=== PATIENT | male | born 1960 | race Caucasian/White ===

== ENCOUNTER → 2022-06-23 15:23 | Outpatient (BNVA) | payer MEDICAID, SELFPAY | PROVIDERS: Visit Provider Surgery | DX: Z86.010 Personal history of colon polyps (principal) | CPT/HCPCS: 99203 ==

== ENCOUNTER 2022-09-30 07:04 | Day surgery (SDC) | payer MEDICAID, SELFPAY ==
[2022-09-28 09:38] VITALS: BMI 36.9
[2022-09-30 07:51] VITALS: BP 137/80; PULSE 70; RESP 17; TEMP 36.4; O2SAT 93
[2022-09-30] MEDS: sodium chloride 0.9% 1,000 ML 30 ML IV (07:56)
--- NOTE | 2022-09-30 08:30 | ANES.PREANE2 ---
Pre-Anesthetic Assessment Height/Weight: Height 1.8 m Weight 120.202 kg Temp Pulse Resp BP Pulse Ox O2 Del Method 97.6 F 70 17 137/80 93 09/30/22 07:51 09/30/22 07:51 09/30/22 07:51 09/30/22 07:51 09/30/22 07:51 09/30/22 07:51 Preop Diagnosis: History of colon polyps Operation Date: 09/30/22 09:15 Proposed Procedures p Colonoscopy 99783,Z86.010(Not Applicable) - To Stephen MD Familial anesthetic complications: None Was Beta Lexie taken within 24 hours: N/A Was Clonidine taken within 24 hours: N/A Last intake: Intake Last Liquid Date 09/29/22 Last Liquid Time 22:00 Last Solid Date 09/29/22 Last Solid Time 07:00 Social Tobacco and No alcohol vapes Exam alert, oriented x 3, clear to auscultation bilaterally and regular rate & rhythm Airway Mallampati: Class III Dentition: other (no teeth) CV/HEM Hypertension Metabolic Morbid Obesity Anesthetic Plan ASA status: 2 Anesthesia: MAC Risk of > 500 ml blood loss (7ml/kg in children): No Medications/Allergies Home Medications Medication Instructions Recorded Confirmed Last Taken Type lisinopril 10 mg tablet 10 mg PO DAILY 06/23/22 09/30/22 09/29/22 History meloxicam 7.5 mg tablet 7.5 mg PO DAILY 06/23/22 09/30/22 09/27/22 History peg 3350-electrolytes 236 240 ml PO Q10M #4,000 mL 06/23/22 09/30/22 09/29/22 Rx gram-22.74 gram-6.74 gram-5.86 gram solution (Golytely) Allergies Allergy/AdvReac Type Severity Reaction Status Date / Time No Known Allergies Allergy Verified 09/30/22 07:49 Current Medications Generic Name Dose Route Start Last Admin Trade Name Freq PRN Reason Stop Dose Admin Sodium Chloride 1,000 mls @ 30 mls/hr 09/30/22 07:15 09/30/22 07:56 Sodium Chloride 0.9% IV 10/01/22 07:14 30 mls/hr .Q24H SKYLER Administration PFSH Anesthesia Family History Other Cancer Diabetes Social History Smoking and tobacco status: never smoked (around it. cigar every once in awhile) Data Anesthesia Cardiac Studies: No Data to Display
--- NOTE | 2022-09-30 08:33 | W.PM.OPSFHP ---
Same Day Surgery H&P Indication for Procedure/HPI DATE OF PROCEDURE: September 30, 2022 CHIEF COMPLAINT/INDICATIONFOR SURGICAL PROCEDURE: History of colon polyps PREOP DIAGNOSIS: History of colon polyps PLANNED PROCEDURE: Operation Date: 09/30/22 09:15 Proposed Procedures p Colonoscopy 18765,Z86.010(Not Applicable) - To Stephen MD Patient comes today for surveillance colonoscopy. ROS All systems have been reviewed negative except as for the above or per problem list. Medications/Allergies* Home Medications Medication Instructions Recorded Confirmed Type lisinopril 10 mg tablet 10 mg PO DAILY 06/23/22 09/30/22 History meloxicam 7.5 mg tablet 7.5 mg PO DAILY 06/23/22 09/30/22 History Allergies/Adverse Reactions Allergy/AdvReac Type Severity Reaction Status Date / Time No Known Allergies Allergy Verified 09/30/22 08:33 Current Medications: Generic Name Dose Route Start Last Admin Trade Name Freq PRN Reason Stop Dose Admin Sodium Chloride 1,000 mls @ 30 mls/hr 09/30/22 07:15 09/30/22 07:56 Sodium Chloride 0.9% IV 10/01/22 07:14 30 mls/hr .Q24H SKYLER Administration Pertinent History/Comorbid Conditions* Family History (Updated 06/23/22 @ 15:44 by Erlinda Purvis MA) Diabetes Cancer Social History Smoking and tobacco status: never smoked (around it. cigar every once in awhile) Pertinent Exam Findings alert, oriented x 3, regular rate & rhythm and procedure specific exam findings (Abdominal exam nontender nondistended soft) Recommendations Surgery/Procedure today (Colonoscopy with possible biopsy) Coding Level of Care Code Acute Electronic Equipment Repairer for Jose Price
[2022-09-30 09:52] VITALS: BP 102/72; PULSE 71; RESP 16; TEMP 36.1; O2SAT 95
[2022-09-30 10:01] VITALS: BP 103/68; PULSE 70; RESP 18; O2SAT 95
--- NOTE | 2022-09-30 15:47 | ANE.PACU2 ---
Inpatient post-anesthesia follow up: Airway intact: Yes Vital signs: Temperature 97 F Pulse Rate 70 Respiratory Rate 18 Blood Pressure 103/68 Pulse Oximetry 95 Oxygen Delivery Me thod Room Air Oxygen Flow Rate 3 Fraction of Inspir ed Oxygen Hydration adequate: Yes Nausea and vomiting: No Pain level: 1 Mental status: Baseline
== END 2022-09-30 10:10 | disposition home or self-care (01) ==
PROVIDERS: PCP Nurse Practitioner; Visit Provider Surgery
PROC: 0DJD8ZZ Inspection of Lower Intestinal Tract, Via Natural or Artificial Opening Endoscopic (ICD-10-PCS; CPT 45378; principal; 2022-09-30 09:15)
DX: Z12.11 Encounter for screening for malignant neoplasm of colon (principal); Z86.010 Personal history of colon polyps; K63.5 Polyp of colon; I10 Essential (primary) hypertension; E66.01 Morbid (severe) obesity due to excess calories; Z68.37 Body mass index [BMI] 37.0-37.9, adult
CPT/HCPCS: 45385; 88305; J2704; J7030

== ENCOUNTER 2023-07-21 07:23 | Outpatient (CLI) | payer MEDICAID, SELFPAY ==
--- NOTE | 2023-07-21 07:32 | US_ITS ---
WS: [id number] RIGHT UPPER QUADRANT ULTRASOUND HISTORY: RUQ PAIN COMPARISON: None available. Liver: 20.3 cm in length. Moderately enlarged liver. Coarse echotexture throughout. Loss of the kierra l portal triads. No mass identified. Portal Vein: Normal hepatopetal flow with monophasic waveform. Gallbladder: Normally distended gallbladder. There is a small amount of debris within the gallbladder which does not shadow. Favor the small nonshadowing stones or sludge. No wall thickening or perichol ecystic fluid. CBD: 0.4 cm Pancreas: Portions of the head and tail are obscured. The body is negative. Right kidney: 11.4 cm in length. Normal size and echogenicity. No hydronephrosis or mass. Aorta and IVC: Unremarkable abdominal aorta and IVC. No ascites. IMPRESSION: 1. Small amount of debris within the gallbladder which does not shadow. Differential includes nonshad owing sludge and stones. 2. No bile duct dilatation. 3. Moderate hepatomegaly and hepatic steatosis.
== END 2023-07-21 07:24 | disposition home or self-care (01) ==
PROVIDERS: PCP Nurse Practitioner; Visit Provider Nurse Practitioner
DX: R10.11 Right upper quadrant pain (principal); K76.0 Fatty (change of) liver, not elsewhere classified; R16.0 Hepatomegaly, not elsewhere classified
CPT/HCPCS: 76705

== ENCOUNTER 2024-03-14 13:54 | Outpatient (CLI) | payer MEDICAID, SELFPAY ==
--- NOTE | 2024-03-14 14:00 | XR_ITS ---
WS: [id number] Lumbar spine with flexion, extension, and neutral lateral, 03/14/2024 Clinical Data: LUMBAGO W/SCIATICA Comparison: None. Findings: No compression fractures or subluxation is seen. There is a posterior lumbosacral fusion at L5-S1. Th ere is degenerative disc narrowing at all lower thoracic and lumbar levels. There is anterior and pos terior moderate osteoarthritis. There is facet joint arthritis from L4-L5 to L5-S1. No fusion instability or subluxation is seen. XR/XR lumbar spine f/e only [id number] Impression: 1. Posterior lumbosacral fusion at L5-S1. 2. Degenerative disc narrowing with osteoarthritis at all levels. 3. Facet joint arthritis from L4-L5 to L5-S1. 4. No effusion instability or subluxation on flexion or extension.
== END 2024-03-14 13:55 | disposition home or self-care (01) ==
LOC: RAD 13:57
PROVIDERS: PCP Nurse Practitioner; Visit Provider Nurse Practitioner
DX: M54.41 Lumbago with sciatica, right side (principal); M54.42 Lumbago with sciatica, left side; M51.36 Other intervertebral disc degeneration, lumbar region; M47.816 Spondylosis without myelopathy or radiculopathy, lumbar region; M47.817 Spondylosis without myelopathy or radiculopathy, lumbosacral region
CPT/HCPCS: 72120

== ENCOUNTER → 2024-04-20 12:55 | Outpatient (BNVA) | payer MEDICAID, SELFPAY | PROVIDERS: PCP Nurse Practitioner; Referring Provider Nurse Practitioner; Visit Provider Physician Assistant | DX: M16.0 Bilateral primary osteoarthritis of hip | CPT/HCPCS: 73522 ==

== ENCOUNTER 2024-05-29 13:55 | Outpatient (CLI) | payer MEDICAID, SELFPAY ==
--- NOTE | 2024-05-29 14:30 | USCV_ITS ---
Austin Barrios Age: 63 Gender: M : 1960 Exam Date: 05/29/2024 14:08 Ordering Phys: Miriam Hummel MD ([email or web address]) Technologist: [place] [facility] [place]: chest pain BP: 135 / 85 HR: 1083 Rhythm: Sinus Technical Quality: Adequate MEASUREMENTS (Male / Female) Normal Values 2D ECHO LV Diastolic Diameter PLAX 4.0 cm 4.2 - 5.9 / 3.9 - 5.3 cm IVS Diastolic Thickness 1.2 cm 0.6 - 1.0 / 0.6 - 0.9 cm IVS Systolic Thickness 1.5 cm LVPW Diastolic Thickness 1.4 cm 0.6 - 1.0 / 0.6 - 0.9 cm LVPW Systolic Thickness 1.7 cm LVOT Diameter 2.0 cm LV Ejection Fraction 2D Teich 64.6 % LV Ejection Fraction MOD 4C 56.5 % LV Ejection Fraction MOD 2C 64.0 % LV Ejection Fraction 2C AL 62.5 % LA Diameter 3.8 cm RA Systolic Volume 4C AL 64.9 ml RA Systolic Volume 4C MOD 61.3 ml Aorta at Sinotubular Diameter 3.1 cm IVC Diameter 2.1 cm M-MODE LA Ao Ratio MM 1.0 AV Cusp Separation MM 2.5 cm DOPPLER AV Peak Velocity 151.0 cm/s LVOT Peak Velocity 62.0 cm/s AV Area Cont Eq vti 1.4 cm squared AV Area Cont Eq pk 1.3 cm squared MV Peak Velocity 74.0 cm/s MV Area PHT 6.0 cm squared Mitral E to A Ratio 1.0 TV Peak Velocity 126.5 cm/s TR Peak Velocity 129.0 cm/s TR Peak Gradient 6.7 mmHg TV Peak E Velocity 95.0 cm/s Right Atrial Pressure 3.0 mmHg Pulmonary Artery Systolic Pressu 9.7 mmHg PV Peak Velocity 152.0 cm/s FINDINGS Left Ventricle Normal left ventricular size and systolic function, ejection fraction of 64%.no regional wall motion abnormalities. Right Ventricle The right ventricle is normal in size and function. Right Atrium The right atrium is normal in size. Left Atrium The left atrium is normal in size. Mitral Valve No gross abnormalities noted Aortic Valve No gross abnormalities noted Tricuspid Valve No gross abnormalities noted Pulmonic Valve No gross abnormalities noted Pericardium Normal pericardium without effusion. Aorta Normal ascending aorta dimension. IVC . Inferior vena cava not visualized. CONCLUSIONS Normal left ventricular size and systolic function, ejection fraction of 64%.no regional wall motion abnormalities. Normal cardiac chamber sizes. No gross valvular abnormalities. There is no pericardial effusion. There are no intracardiac masses. No similar previous studies are available for comparison Dr Miriam Hummel MD FAC (Electronically Signed) Final Date: 30 May 2024 00:29 S
== END 2024-05-29 13:56 | disposition home or self-care (01) ==
PROVIDERS: PCP Nurse Practitioner; Visit Provider Internal Medicine Cardiovascular Disease
DX: R06.09 Other forms of dyspnea (principal); R07.9 Chest pain, unspecified
CPT/HCPCS: 93306

== ENCOUNTER 2024-06-20 09:55 | Outpatient (CLI) | payer MEDICAID, SELFPAY ==
--- NOTE | 2024-06-20 09:58 | XRR_ITS ---
PROCEDURE INFORMATION: Exam: XR Chest Exam date and time: 06/20/2024 10:13 AM Age: 63 years old Clinical indication: Shortness of breath; Additional info: SOB TECHNIQUE: Imaging protocol: Radiologic exam of the chest. Views: 2 views. COMPARISON: No relevant prior studies available. FINDINGS: Lungs: Unremarkable. No consolidation. Pleural spaces: Unremarkable. No pleural effusion. No pneumothorax. Heart/Mediastinum: Unremarkable. No cardiomegaly. Bones/joints: Degenerative changes are noted of both hips. XR/XR chest 2V insp/exp [id number] IMPRESSION: No acute cardiopulmonary disease.
== END 2024-06-20 09:56 | disposition home or self-care (01) ==
PROVIDERS: PCP Nurse Practitioner; Visit Provider Internal Medicine Cardiovascular Disease
DX: R06.02 Shortness of breath (principal)
CPT/HCPCS: 71046

== ENCOUNTER 2024-09-12 09:32 | Outpatient (CLI) | payer MEDICAID, SELFPAY ==
--- NOTE | 2024-09-12 | ECG_ITS ---
[employer] Test Date: 2024-09-12 Pat Name: Austin Barrios Department: Room: Gender: Male Club Room Attendant: : 1960 Requested By: Miriam Hummel Order Number: [id number] Santosh MD: Miriam Hummel M.D. Interpretive Statements Lung unchanged pre/post procedure; Intraprocedure shortess of breath; Symptoms resoled by discharge PROCEDURE: At the baseline, the EKG revealed normal sinus rhythm with diffuse nonspecific T wave changes.. The baseline heart was 74 bpm with a blood pressue of 158/93 mm of Hg Lexiscan was infused over a period of 20 seconds. A total of 0.4 milligrams of Lexiscan was infused. The stress phase was continued for a total of 5 minutes. Heart rate at the end of the stress phase was 80 bpm with a blood pressure 157/96 mm of Hg. The EKG at the peak infusion revealed no significant changes. Sestamibi was injected 20 seconds after the Lexiscan infusion. Heart rate at the end of the recovery phase was 75 bpm with a blood pressure of 156/89 mm of Hg. CONCLUSION: 1. No significant EKG changes with the LexiScan infusion 2. No LexiScan induced chest pain or cardiac arrhythmia 3. Normal blood pressure and heart rate response 4. Sestamibi/sestamibi perfusion scan pending; see separate report. Electronically Signed On 09-15-2024 13:54:49 CLIENT SOLUTIONS MANAGER by Miriam Hummel M.D. [email or web address]
--- NOTE | 2024-09-12 09:50 | NMCV_ITS ---
NM juan perf SPECT r/s* [id number] Austin Barrios Age: 64 Gender: M : 1960 Exam Date: 09/12/2024 09:50 Ordering Phys: Miriam Hummel MD ([email or web address]) Technologist: PALLAVI Gatica Exam Location: [facility] Indications: ABNORMAL EKG STRESS TEST [facility] IMAGE PROTOCOL Rest/Stress 1 Exercise Day Radiopharmaceutical Dose (mCi) Administration Site Administered by Rest: Tc-99m 10.9 IV Magy Tanna, ELECTRICIAN'S ASSISTANT Sestamibi Stress:Tc-99m 32.6 IV Magy Tanna, ELECTRICIAN'S ASSISTANT Sestamibi Rest: 12-Sep-2024 60 Discovery 630 Stress: 12-Sep-2024 30 Discovery 630 0.4mg Lexiscan. Images obtained in supine and prone position. SPECT RESULTS Technical Quality: Good Raw Data Analysis: Normal Image Corrections: No attenuation or motion correction applied Summed Stress Score: 0 Summed Rest Score: 0 Summed Difference Score: 0 PERFUSION FINDINGS Uniform myocardial tracer uptake with no significant Perfusion abnormalities FUNCTIONAL RESULTS (calculated via Gated SPECT) Stress Image LV EF (%): 72 Stress EDV (mL):100 TID: 0.98 Stress ESV (mL):28 FUNCTIONAL FINDINGS: Segmental wall motion analysis revealing no gross wall motion abnormalities IMPRESSIONS 1. Uniform myocardial tracer uptake with no significant perfusion abnormalities 2. Normal LV ejection fraction of 72%. 3. LV wall motion analysis revealing no gross wall motion abnormalities. 4. Normal LV volume Low probability for coronary ischemia, based on the above findings No similar previous studies are available for comparison Dr Miriam Hummel MD FACC (Electronically Signed) Final Date: 12 September 2024 17:18 S
[2024-09-12 09:51] VITALS: BMI 37.2
--- NOTE | 2024-09-12 11:17 | PC.NURSE ---
Patient to do an exercise sestamibi stress test. He was unable to reach his target HR of 133 due to SOB and leg pain. Dr. Hummel notified and orders received to change the test to a Lexiscan sestamibi stress test. Patient agreeable to proceed.
[2024-09-12] MEDS: regadenoson 0.4 Mg/5 ml Syringe IVP (11:32)
[2024-09-12 12:18] VITALS: BP 153/97; PULSE 78
== END 2024-09-12 09:33 | disposition home or self-care (01) ==
LOC: CDL 09:33
PROVIDERS: PCP Nurse Practitioner; Visit Provider Internal Medicine Cardiovascular Disease
DX: Z98.61 Coronary angioplasty status (principal); R06.02 Shortness of breath
CPT/HCPCS: 36415; 78452; 93017; 96374; A9500; J2785

== ENCOUNTER 2025-01-22 14:49 | Emergency (ER) | payer MEDICAID, SELFPAY ==
[2025-01-22 15:18] VITALS: BP 125/71; PULSE 81; RESP 22; TEMP 36.8; O2SAT 91; BMI 36.3
--- NOTE | 2025-01-22 15:27 | XR_ITS ---
WS: [id number] Exam: XR chest 1V portable [id number] Date/Time of Exam: 01/22/2025 3:27 PM Reason For Exam: sob Comparison 06/20/2024. Lungs are fully inflated and clear. Normal cardiomediastinal silhouette and regional bony elements. Permanent cardiac pacer superimposes the LEFT chest. XR/XR chest 1V portable [id number] IMPRESSION: 1. Negative chest.
--- NOTE | 2025-01-22 15:36 | ECG_ITS ---
[employer] Test Date: 2025-01-22 Pat Name: Austin Barrios Department: Room: Gender: Male Permit Review Assistant: : 1960 Requested By: Herman Arroyo Order Number: [id number] Santosh MD: Miriam Hummel M.D. Measurements Intervals [place] Rate: 79 P: 54 [place]: 211 QRS: 99 QRSD: 93 T: 28 QT: 315 QTc: 361 Interpretive Statements SINUS RHYTHM WITH FIRST DEGREE AV BLOCK INDETERMINATE AXIS POSSIBLE ANTERIOR MYOCARDIAL INFARCTION , OF INDETERMINATE AGE [30 ms Q WAVE IN V3/V4, OR R < 0.2 mV IN V4] Compared to ECG 05/10/2024 15:58:15 First degree AV block now present Indeterminate axis now present Myocardial infarct finding now present T-wave abnormality no longer present Possible ischemia no longer present Electronically Signed On 01-23-2025 12:32:58 CDT by Miriam Hummel M.D. [email or web address]
--- NOTE | 2025-01-22 15:48 | W.ED.URI ---
HPI - URI/Sore Throat General: Chief Complaint: Upper Respiratory Infection Stated Complaint: marie, congestion Time Seen by Provider: 01/22/25 15:27 Source: patient Mode of arrival: ambulatory Limitations: no limitations History of Present Illness: Patient is a nice 64-year-old male presents to ED today with a complaint of cough and congestion. He was reportedly sent here by his primary care provider for concerns of possible pneumonia. Patient did undergo pacemaker over a week ago for episodes of sinus pauses. States he has been doing well following this procedure. He does report some low-grade fevers and chills. Complains about postnasal drainage when he is lying down. I believe patient is supposed to be wearing a CPAP at night but is noncompliant with this. Patient is not having any chest pain. He denies feeling short of breath. He is mildly hypoxic upon arrival at 88 to 89% on room air. Denies history of COPD. He does smoke marijuana and occasional cigarettes. Denies recent weight gain or lower extremity swelling. MD elicited complaint: fever, cough and nasal congestion Onset (ago): day(s) Consistency: constant Severity: moderate Description of mucous: clear Able to tolerate fluids by mouth: Yes Exacerbating factors: nothing Relieving factors: nothing Context: recent hospitalization Associated symptoms: Reports chills, fever(s) (subjective) and nasal congestion; Deny abdominal pain, chest pain, diarrhea, ear or mastoid pain, headache(s), nausea, sinus pain or vomiting Treatments prior to arrival: none Related Data Home Medications ?Medication ?Instructions ?Recorded ?Confirmed hydrocodone 5 mg-acetaminophen 325 1 tab PO Q4H PRN Pain 01/22/25 01/22/25 mg tablet meloxicam 15 mg tablet 15 mg PO DAILY 01/22/25 01/22/25 [id number] 3.5 4 drp otic (ear) TID 01/22/25 01/22/25 mg-10,000 unit/mL-1 % ear drops,susp ofloxacin 0.3 % ear drops 4 drp otic (ear) BID 01/22/25 01/22/25 Previous Rx's ?Medication ?Instructions ?Recorded losartan 25 mg tablet 25 mg PO DAILY #90 tabs 06/27/24 Allergies Allergy/AdvReac Type Severity Reaction Status Date / Time lisinopril Allergy ADR-Nausea Verified 08/15/24 11:18 Review of Systems Const: Reports: fever(s) (subjective), chills, body aches and fatigue ENMT: Reports: nasal congestion; Denies: throat pain, odynophagia, ear or mastoid pain, nasal discharge or sinus pain Card: Denies: chest pain, palpitations, irregular heart rhythm, edema, swelling of feet/ankles, lightheadedness, syncope or pre-syncope Resp: Reports: non-productive cough and chest congestion; Denies: dyspnea, wheezing, pain on inspiration or hemoptysis GI: Denies: abdominal pain, nausea, vomiting or diarrhea : Denies: flank pain or dysuria Musc: Denies: neck pain, back pain, extremity pain, extremity swelling, joint pain, joint swelling or joint redness Skin/Breast: Denies: rash Neuro: Denies: headache(s), numbness in extremities, weakness in extremities, sensory changes or dizziness PFSH ED PFSH: Family History Other Cancer Diabetes Social History Smoking and tobacco/nicotine status: current every day tobacco/nicotine user Physical Exam Const: COMMON NORMALS: no acute distress, patient oriented x3, no limitations and alert GENERAL APPEARANCE: cooperative NUTRITIONAL APPEARANCE: overweight ORIENTATION/CONSCIOUSNESS: Yes awake, Yes oriented to person, Yes oriented to place and Yes oriented to time Neck/C-Spine: COMMON NORMALS: no lymphadenopathy and no JVD Chest: COMMONS NORMALS: normal inspection of the chest and normal palpation of entire chest wall OTHER: pacemaker site appears clean and well healing Resp: COMMON NORMALS: normal respiratory effort AUSCULTATION: rhonchi Cardio: COMMON NORMALS: no JVD, regular rate and regular rhythm RATE: regular rate RHYTHM: regular rhythm Extremity: GENERAL: Yes normal exam except as noted Neuro: COMMON NORMALS: patient oriented x3, moves all extremities, no focal motor deficits and no sensory deficits noted SENSORIUM/ORIENTATION: Yes alert, Yes oriented to person, Yes oriented to place and Yes oriented to time Course Vital Signs: Vital signs: Vital Signs Temperature 98.3 F 01/22/25 15:18 Pulse Rate 79 01/22/25 16:02 Respiratory Rate 18 01/22/25 16:02 Blood Pressure 125/71 01/22/25 15:18 Pulse Oximetry 95 01/22/25 17:02 Oxygen Delivery Me thod Nasal Cannula 01/22/25 16:02 Oxygen Flow Rate 4 01/22/25 16:02 MDM - URI/Sore Throat Medical Decision Making Patient is a nice 64-year-old male who presents to ED today with complaint of cough, congestion, subjective fevers, chills, body aches over the past 3 days. He arrives with stable vital signs apart from he was mildly hypoxic on room air requiring 2 to 3 L of oxygen. Blood work overall is nonactionable. He has a normal white count. Normal procalcitonin. His chemistry panel is unremarkable. BNP is normal. No evidence of fluid overload or CHF. Influenza/COVID/RSV swab was positive for influenza B. CXR is negative. Patient is outside the window for Tamiflu. He would like to go home. Had RT come for home O2 evaluation and patient was satting at 95% on RA and only dropped to 91% during 6 min exercise thus did not qualify for home O2. Plan for discharge with recommendations to follow-up with his primary care provider by the end of the week for reevaluation. Return to ED precautions discussed. Differential Diagnosis Likely upper respiratory infection, viral infection, bronchitis and influenza Medical Records I reviewed the patient's medical records. Lab Data I reviewed the patient's lab results. 01/22/25 15:41 01/22/25 15:41 Radiology Impressions Chest X-Ray 01/22/25 15:27 IMPRESSION: 1. Negative chest. Laboratory Results WBC 4.79 10^3/uL (3.29-11.43) 01/22/25 15:41 RBC 4.95 10^6/uL (3.85-5.65) 01/22/25 15:41 Hgb 16.90 g/dL (11.27-16.99) 01/22/25 15:41 Hct 49.7 % (37-53) 01/22/25 15:41 MCV 100.4 fl (82-101) 01/22/25 15:41 MCH 34.1 pg (27-33) H 01/22/25 15:41 MCHC 34.0 g/dL (30-55) 01/22/25 15:41 RDW 12.7 % (12.1-15.1) 01/22/25 15:41 Plt Count 131 10^3/cmm (157-399) L 01/22/25 15:41 MPV 9.1 fL (7.4-10.4) 01/22/25 15:41 Neut % (Auto) 51.8 % 01/22/25 15:41 Lymph % (Auto) 26.5 % 01/22/25 15:41 [place] % (Auto) 12.7 % 01/22/25 15:41 Eos % (Auto) 8.4 % 01/22/25 15:41 Baso % (Auto) 0.4 % 01/22/25 15:41 Neut # (Auto) 2.48 10^3/uL (1.8-7.7) 01/22/25 15:41 Lymph # (Auto) 1.3 10^3/uL (0.8-4.8) 01/22/25 15:41 [place] # (Auto) 0.6 10^3/uL (0.2-0.9) 01/22/25 15:41 Eos # (Auto) 0.4 10^3/uL (0.0-0.8) 01/22/25 15:41 Baso # (Auto) 0.0 10^3/uL (0.0-0.1) 01/22/25 15:41 Nucleated RBC % (auto) 0 % 01/22/25 15: Nucleated RBCs # 0.0 /100WBC 01/22/25 15:41 Sodium 134 mmol/L (136-145) L 01/22/25 15:41 Potassium 4.2 mmol/L (3.5-5.1) 01/22/25 15:41 Chloride 101 mmol/L (98-107) 01/22/25 15:41 Carbon Dioxide 24 mmol/L (22-29) 01/22/25 15:41 Anion Gap 13.2 (5-19) 01/22/25 15:41 BUN 13 mg/dL (8-23) 01/22/25 15:41 Creatinine 0.9 mg/dL (0.7-1.2) 01/22/25 15:41 GFR Calculation 85.2 mL/min (90-130) L 01/22/25 15:41 Glucose 108 mg/dL (65-115) 01/22/25 15:41 Calculated Osmolality 279 mOsm/kg (285-295) L 01/22/25 15:41 Calcium 8.7 mg/dL (8.5-10.5) 01/22/25 15:41 Total Bilirubin 0.4 mg/dL (0.15-1.2) 01/22/25 15:41 AST 23 U/L (0-40) 01/22/25 15:41 ALT 29 U/L (0-41) 01/22/25 15:41 Alkaline Phosphatase 74 U/L (40-130) 01/22/25 15:41 NT-Pro-B Natriuret Pep 95 pg/mL (0-125) 01/22/25 15:41 Total Protein 6.7 g/dL (6.6-8.7) 01/22/25 15:41 Albumin 4.0 g/dL (3.5-5.2) 01/22/25 15:41 Globulin 2.7 g/dL (1.3-4.6) 01/22/25 15:41 Influenza A (PCR) Negative (Negative) 01/22/25 15:39 Influenza Type B (PCR) Positive (Negative) 01/22/25 15:39 RSV (PCR) Negative (Negative) 01/22/25 15:39 SARS-CoV-2 (PCR) Negative (Negative) 01/22/25 15:39 All radiology interpretation(s) finalized by discharge Discharge Plan Discharge Patient Disposition: Home Clinical Impression: Influenza B Condition: Stable Prescriptions: No Action losartan 25 mg tablet 25 mg PO DAILY Qty: 90 3RF hydrocodone-acetaminophen [Cadott] 5-325 mg Tablet 1 tab PO Q4H PRN (Reason: Pain) meloxicam 15 mg tablet 15 mg PO DAILY ofloxacin 0.3 % drops 4 drp otic (ear) BID [id number] 3.5-10,000-1 mg/mL-unit/mL-% drops,suspension 4 drp otic (ear) TID Discharge Orders: Discharge ED (Routine); Ordered 01/22/25 Ordered By: Delphine Segovia Referrals: Guadalupe Gutierrez, [address] [facility] [Primary Care Provider] - Patient Instructions: Influenza (DC) Activity Restrictions/Additional Instructions: As we discussed, you are positive for influenza B. The remainder of your blood work was nonactionable. Your chest x-ray was unremarkable. You were requiring a small amount of oxygen at rest however during respiratory home O2 evaluation you did not qualify for home oxygen. You need to return to the emergency department for worsening cough, chest congestion, shortness of breath, trouble breathing, chest pain, or any other concerns you may have. I hope you begin to feel better soon. Print Language: Croatian Coding Level of Care Code ED Certified Medical Coding Specialist for Jose Price
[2025-01-22 16:02] VITALS: PULSE 79; RESP 18; O2SAT 92
--- NOTE | 2025-01-22 16:02 | PC.PHAR ---
Pt states he finished the antibiotics given when pacemaker was put in. Pt does have Hydrocodone 5-325 for pain. Finished Cipro 500 bid 01/10/25 7d, and Augmentin 875mg bid 12/18/24 10d.
[2025-01-22 16:05] LABS: Basophils % 0.4 %; Eosinophils # 0.4 10^3/uL (0.0-0.8); Eosinophils % 8.4 %; Hematocrit 49.7 % (37-53); Lymphocytes # 1.3 10^3/uL (0.8-4.8); Lymphocytes % 26.5 %; Mean Corpuscular Hemoglobin 34.1 pg (27-33); Mean Corpuscular Volume 100.4 fl (82-101); Mean Platelet Volume 9.1 fL (7.4-10.4); Monocytes # 0.6 10^3/uL (0.2-0.9); Monocytes % 12.7 %; Neutrophils # 2.48 10^3/uL (1.8-7.7); Neutrophils % 51.8 %; Nucleated Red Blood Cells % 0 %; Platelet Count 131 10^3/cmm (157-399); Red Blood Count 4.95 10^6/uL (3.85-5.65); Red Cell Distribution Width 12.7 % (12.1-15.1); White Blood Count 4.79 10^3/uL (3.29-11.43)
[2025-01-22] MEDS: ipratropium-albuterol 3 mL Neb INHALATION (16:05)
[2025-01-22 16:30] LABS: Alanine Aminotransferase 29 U/L (0-41); Alkaline Phosphatase 74 U/L (40-130); Anion Gap 13.2 (5-19); Aspartate Amino Transferase 23 U/L (0-40); Blood Urea Nitrogen 13 mg/dL (8-23); Calcium 8.7 mg/dL (8.5-10.5); Carbon Dioxide 24 mmol/L (22-29); Chloride 101 mmol/L (98-107); Creatinine Clr Calc Pharmacy 113.1059; Globulin 2.7 g/dL (1.3-4.6); Glomerular Filtration Rate 85.2 mL/min (90-130); Glucose 108 mg/dL (65-115); NT Pro B Type Natriuretic Pept 95 pg/mL (0-125); Osmolality Calculated 279 mOsm/kg (285-295); Potassium 4.2 mmol/L (3.5-5.1); Sodium 134 mmol/L (136-145); Total Bilirubin 0.4 mg/dL (0.15-1.2); Total Protein 6.7 g/dL (6.6-8.7)
[2025-01-22] MEDS: methylPREDNISolone sod succ 125 mg/2 mL INJ IVP (16:36)
[2025-01-22 16:40] LABS: Influenza A NEGATIVE (Negative); Influenza B POSITIVE (Negative); Respiratory Syncytial Virus Ce NEGATIVE (Negative); SARS-CoV-2 PCR NEGATIVE (Negative)
[2025-01-22 17:02] VITALS: O2SAT 91; O2SAT 95
== END 2025-01-22 17:42 | disposition home or self-care (01) ==
PROVIDERS: Emergency Medicine; Emergency Provider Physician Assistant; PCP Nurse Practitioner
DX: J10.1 Influenza due to other identified influenza virus with other respiratory manifestations (principal); Z11.52 Encounter for screening for COVID-19; Z72.0 Tobacco use
CPT/HCPCS: 71045; 80053; 83880; 85025; 87637; 93005; 94640; 94760; 96374; 99285; J2919; J9999

== ENCOUNTER 2025-04-15 20:00 | Outpatient (CLI) | payer MEDICAID, SELFPAY | END 2025-04-15 20:01 | disposition home or self-care (01) | LOC: SLEEP 04-16 00:17 | PROVIDERS: PCP Nurse Practitioner; Referring Provider Nurse Practitioner; Visit Provider Internal Medicine Pulmonary Disease | DX: G47.33 Obstructive sleep apnea (adult) (pediatric) (principal) | CPT/HCPCS: 95811 ==